=== PATIENT | female | born 1960 | race Caucasian/White ===

== ENCOUNTER → 2016-09-20 | Outpatient (CLI) | payer BC | LOC: MW.CHRC 10:52 | PROVIDERS: ATTEND Family Medicine | DX: E23.6 Other disorders of pituitary gland (principal) | CPT/HCPCS: 36415; 84439; 84443 ==

== ENCOUNTER → 2016-10-10 | Outpatient (CLI) | payer BC ==
--- NOTE | 2016-10-10 14:15 | CR ---
EXAMINATION: Two-view chest (PA and Lateral views). HISTORY: Cough. Comparison: 08/17/2015. FINDINGS: The trachea is midline. The cardiomediastinal silhouette is within normal limits. There is stable bl unting of the left costophrenic angle. No focal consolidation, pleural effusion, or pneumothorax. Osseous structures appear unremarkable. IMPRESSION: No acute cardiopulmonary process.
== END ==
LOC: MW.CHRC 13:40
PROVIDERS: ATTEND Family Medicine
DX: R50.9 Fever, unspecified (principal); R05 Cough
CPT/HCPCS: 36415; 71020; 71020-26; 85025; 87804

== ENCOUNTER 2017-05-21 15:55 | Observation (INO) | payer BC ==
[2017-05-21] MEDS ORDERED: Sodium Chloride 0.9% 10 ML Syringe FLUSH PRN (16:03)
[2017-05-21] MEDS ORDERED: Aspirin 81 MG Tab.Chew PO ONE (16:03)
[2017-05-21] MEDS ORDERED: Sodium Chloride 0.9% 2.5 ML Syringe FLUSH PRN (16:03)
[2017-05-21] MEDS ORDERED: Nitroglycerin 2% Oint 1 GM UD Packet TOP ONE (16:03)
--- NOTE | 2017-05-21 16:06 | EDM.PDOC ---
ED HPI GENERAL MEDICAL PROBLEM - General Chief Complaint: Chest Pain Stated Complaint: CHEST PAIN Time Seen by Provider: 05/21/17 16:00 - History of Present Illness INITIAL COMMENTS - FREE TEXT/NARRATIVE: HISTORY AND PHYSICAL: History of present illness: Patient 57-year-old female presents with a concern of chest pain she had an episode this morning last proximate 10 minutes with associated nausea and shortness of breath and diaphoresis. Patient equivocates regarding some mild soreness now over upper back. Patient is a smoker she states 10 years prior she had a thallium stress that was negative Review of systems: As per history of present illness and below otherwise all systems reviewed and negative. Past medical history: As per history of present illness and as reviewed below otherwise noncontributory. Surgical history: As per history of present illness and as reviewed below otherwise noncontributory. Social history: No reported history of drug or alcohol abuse. Family history: As per history of present illness and as reviewed below otherwise noncontributory. Physical exam: HEENT: Atraumatic, normocephalic, pupils reactive, negative for conjunctival pallor or scleral icterus, mucous membranes moist, throat clear, neck supple, nontender, trachea midline. Lungs: Clear to auscultation, breath sounds equal bilaterally, chest nontender. Heart: S1S2, regular, negative for clicks, rubs, or JVD. Abdomen: Soft, nondistended, nontender. Negative for masses or hepatosplenomegaly. Negative for costovertebral tenderness. Pelvis: Stable nontender. Genitourinary: Deferred. Rectal: Deferred. Extremities: Atraumatic, negative for cords or calf pain. Neurovascular unremarkable. Neuro: Awake, alert, oriented. Cranial nerves II through XII unremarkable. Cerebellum unremarkable. Motor and sensory unremarkable throughout. Exam nonfocal. Diagnostics: CBC CMP troponin PT/INR chest x-ray EKG Therapeutics: IV O2 monitor aspirin 324 mg by mouth Nitropaste 1 inch to chest wall Impression: #1 chest pain Definitive disposition and diagnosis as appropriate pending reevaluation and review of above. Chest Pain Score (Numeric/FACES): 0 - Related Data Allergies Allergy/AdvReac Type Severity Reaction Status Date / Time No Known Allergies Allergy Verified 05/05/16 17:16 Home Meds: Home Meds Aspirin 81 mg PO DAILY 05/05/16 [History] Levothyroxine 125 mcg PO ACBREAKFAST 05/21/17 [History] Losartan [Cozaar] 25 mg PO DAILY 05/21/17 [History] atorvaSTATin [Lipitor] 20 mg PO BEDTIME 05/21/17 [History] metFORMIN [Glucophage XR] 1,000 mg PO BIDMEALS 05/21/17 [History] Past Medical History HEENT History: Reports: None Cardiovascular History: Reports: Hypertension Respiratory History: Reports: Bronchitis, Recurrent Gastrointestinal History: Reports: None Genitourinary History: Reports: None 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: Musculoskeletal History: Reports: Arthritis, Fracture Neurological History: Reports: None Psychiatric History: Reports: None Endocrine/Metabolic History: Reports: None Hematologic History: Reports: None Immunologic History: Reports: None Oncologic (Cancer) History: Reports: None Dermatologic History: Reports: Psoriasis - Infectious Disease History Infectious Disease History: Reports: Chicken Pox, Measles, Mumps - Past Surgical History GI Surgical History: Reports: Colonoscopy Social & Family History - Family History Family Medical History: Noncontributory - Tobacco Use Smoking Status *Q: Current Every Day Smoker Years of Tobacco use: 20 Packs/Tins Daily: 1 - Caffeine Use Caffeine Use: Reports: Coffee - Recreational Drug Use Recreational Drug Use: No ED ROS GENERAL - Review of Systems Review Of Systems: ROS reveals no pertinent complaints other than HPI. ED EXAM, GENERAL - Physical Exam Exam: See Below (See dictated) Course - Vital Signs Last Recorded V/S: Last Vital Signs Temp 36.7 C 05/21/17 16:06 Pulse 67 05/21/17 16:06 Resp 18 05/21/17 16:06 BP 178/79 H 05/21/17 16:06 Pulse Ox 95 05/21/17 16:06 - Orders/Labs/Meds Orders: Active Orders 24 hr Category Date Time Status Cardiac Monitoring [RC] . DIRECTED Care 05/21/17 16:03 Active EKG Documentation Completion [RC] STAT Care 05/21/17 16:03 Active Oxygen Therapy, ED [RC] ASDIRECTED Care 05/21/17 16:03 Active Pulse Oximetry [RC] ASDIRECTED Care 05/21/17 16:03 Active Chest 1V Frontal [CR] Stat Exams 05/21/17 16:03 Taken Sodium Chloride 0.9% [Normal Saline] 1,000 ml Med 05/21/17 16:15 Active IV STAT Sodium Chloride 0.9% [Saline Flush] Med 05/21/17 16:03 Active 10 ml FLUSH ASDIRECTED PRN Sodium Chloride 0.9% [Saline Flush] Med 05/21/17 16:03 Active 2.5 ml FLUSH ASDIRECTED PRN Saline Lock Insert [OM.PC] Stat Oth 05/21/17 16:03 Ordered Medication Orders Sodium Chloride (Normal Saline) 1,000 mls @ 125 mls/hr IV STAT JOSEE Last Admin: 05/21/17 16:44 Dose: 125 mls/hr Sodium Chloride (Saline Flush) 10 ml FLUSH ASDIRECTED PRN PRN Reason: Keep Vein Open Last Admin: 05/21/17 16:46 Dose: 10 ml Sodium Chloride (Saline Flush) 2.5 ml FLUSH ASDIRECTED PRN PRN Reason: Keep Vein Open Last Admin: 05/21/17 16:46 Dose: 2.5 ml Labs: Laboratory Tests 05/21/17 05/21/17 05/21/17 Range/Units 17:03 17:03 17:03 WBC 6.72 (4.0-11.0) K/uL RBC 4.55 (4.30-5.90) M/uL Hgb 14.0 (12.0-16.0) g/dL Hct 42.5 (36.0-46.0) % MCV 93.4 (80.0-98.0) fL MCH 30.8 (27.0-32.0) pg MCHC 32.9 (31.0-37.0) g/dL RDW Std Deviation 47.3 (28.0-62.0) fl RDW Coeff of Christen 14 (11.0-15.0) % Plt Count 281 (150-400) K/uL MPV 9.40 (7.40-12.00) fL Neut % (Auto) 59.9 (48.0-80.0) % Lymph % (Auto) 30.8 (16.0-40.0) % [place] % (Auto) 6.5 (0.0-15.0) % Eos % (Auto) 2.4 (0.0-7.0) % Baso % (Auto) 0.4 (0.0-1.5) % Neut # (Auto) 4.0 (1.4-5.7) K/uL Lymph # (Auto) 2.1 (0.6-2.4) K/uL [place] # (Auto) 0.4 (0.0-0.8) K/uL Eos # (Auto) 0.2 (0.0-0.7) K/uL Baso # (Auto) 0.0 (0.0-0.1) K/uL Nucleated RBC % 0.0 /100WBC Nucleated RBCs # 0 K/uL INR 0.95 (0.86-1.11) Sodium 139 (136-146) mmol/L Potassium 3.6 (3.5-5.1) mmol/L Chloride 107 (98-110) mmol/L Carbon Dioxide 22 (21-31) mmol/L BUN 9 (6.0-23.0) mg/dL Creatinine 0.7 (0.6-1.5) mg/dL Est Cr Clr Drug Dosing 90.53 mL/min Estimated GFR (MDRD) > 60.0 ml/min Glucose 98 (60-110) mg/dL Calcium 9.1 (8.8-10.8) mg/dL Total Bilirubin 0.6 (0.1-1.5) mg/dL AST 14 (5-40) IU/L ALT 14 (8-54) IU/L Alkaline Phosphatase 74 (40-150) Troponin I < 0.10 (0.0-0.29) NG/ML B-Natriuretic Peptide (<100) PG/ML Total Protein 6.9 (6.0-8.0) g/dL Albumin 3.9 (3.5-5.0) g/dL Globulin 3.0 (2.0-3.5) g/dL Albumin/Globulin Ratio 1.3 (1.3-2.8) 05/21/17 Range/Units 17:03 WBC (4.0-11.0) K/uL RBC (4.30-5.90) M/uL Hgb (12.0-16.0) g/dL Hct (36.0-46.0) % MCV (80.0-98.0) fL MCH (27.0-32.0) pg MCHC (31.0-37.0) g/dL RDW Std Deviation (28.0-62.0) fl RDW Coeff of Christen (11.0-15.0) % Plt Count (150-400) K/uL MPV (7.40-12.00) fL Neut % (Auto) (48.0-80.0) % Lymph % (Auto) (16.0-40.0) % [place] % (Auto) (0.0-15.0) % Eos % (Auto) (0.0-7.0) % Baso % (Auto) (0.0-1.5) % Neut # (Auto) (1.4-5.7) K/uL Lymph # (Auto) (0.6-2.4) K/uL [place] # (Auto) (0.0-0.8) K/uL Eos # (Auto) (0.0-0.7) K/uL Baso # (Auto) (0.0-0.1) K/uL Nucleated RBC % /100WBC Nucleated RBCs # K/uL INR (0.86-1.11) Sodium (136-146) mmol/L Potassium (3.5-5.1) mmol/L Chloride (98-110) mmol/L Carbon Dioxide (21-31) mmol/L BUN (6.0-23.0) mg/dL Creatinine (0.6-1.5) mg/dL Est Cr Clr Drug Dosing mL/min Estimated GFR (MDRD) ml/min Glucose (60-110) mg/dL Calcium (8.8-10.8) mg/dL Total Bilirubin (0.1-1.5) mg/dL AST (5-40) IU/L ALT (8-54) IU/L Alkaline Phosphatase (40-150) Troponin I (0.0-0.29) NG/ML B-Natriuretic Peptide < 15 (<100) PG/ML Total Protein (6.0-8.0) g/dL Albumin (3.5-5.0) g/dL Globulin (2.0-3.5) g/dL Albumin/Globulin Ratio (1.3-2.8) Meds: Medications Generic Name Dose Route Start Last Admin Trade Name Freq PRN Reason Stop Dose Admin Sodium Chloride 1,000 mls @ 125 mls/hr 05/21/17 16:15 05/21/17 16:44 Normal Saline IV 125 mls/hr STAT JOSEE Administration Sodium Chloride 10 ml 05/21/17 16:03 05/21/17 16:46 Saline Flush FLUSH 10 ml ASDIRECTED PRN Administration Keep Vein Open Sodium Chloride 2.5 ml 05/21/17 16:03 05/21/17 16:46 Saline Flush FLUSH 2.5 ml ASDIRECTED PRN Administration Keep Vein Open Discontinued Medications Generic Name Dose Route Start Last Admin Trade Name Isabel PRN Reason Stop Dose Admin Aspirin 324 mg 05/21/17 16:03 05/21/17 16:18 Aspirin PO 05/21/17 16:04 324 mg ONETIME ONE Administration Nitroglycerin 1 gm 05/21/17 16:03 05/21/17 16:17 Nitro-Bid 2% TOP 05/21/17 16:04 1 gm ONETIME ONE Administration Departure - Departure Time of Disposition: 18:00 Disposition: Refer to Observation Condition: Good Clinical Impression: Chest pain - Discharge Information Forms: ED Department Discharge - My Orders Last 24 Hours: My Active Orders 05/21/17 16:03 Cardiac Monitoring [RC] . DIRECTED EKG Documentation Completion [RC] STAT Oxygen Therapy, ED [RC] ASDIRECTED Pulse Oximetry [RC] ASDIRECTED Chest 1V Frontal [CR] Stat Sodium Chloride 0.9% [Saline Flush] 10 ml FLUSH ASDIRECTED PRN Sodium Chloride 0.9% [Saline Flush] 2.5 ml FLUSH ASDIRECTED PRN Saline Lock Insert [OM.PC] Stat 05/21/17 16:15 Sodium Chloride 0.9% [Normal Saline] 1,000 ml IV STAT - Assessment/Plan Last 24 Hours: My Active Orders 05/21/17 16:03 Cardiac Monitoring [RC] . DIRECTED EKG Documentation Completion [RC] STAT Oxygen Therapy, ED [RC] ASDIRECTED Pulse Oximetry [RC] ASDIRECTED Chest 1V Frontal [CR] Stat Sodium Chloride 0.9% [Saline Flush] 10 ml FLUSH ASDIRECTED PRN Sodium Chloride 0.9% [Saline Flush] 2.5 ml FLUSH ASDIRECTED PRN Saline Lock Insert [OM.PC] Stat 05/21/17 16:15 Sodium Chloride 0.9% [Normal Saline] 1,000 ml IV STAT
[2017-05-21] MEDS ORDERED: Sodium Chloride 0.9% 1,000 ML IV SCH (16:15)
[2017-05-21 17:41] LABS: CHLORIDE,CL 107 mmol/L (98-110); SODIUM,NA 139 mmol/L (136-146)
[2017-05-21] MEDS ORDERED: Ondansetron 4 MG/2 ML SDV IVPUSH PRN (20:30)
--- NOTE | 2017-05-21 20:37 | PCM.HP ---
H&P History of Present Illness - General Admit Problem/Dx: Admission Diagnosis/Problem Admission Diagnosis/Problem Chest pain - History of Present Illness Initial Comments - Free Text/Narative: 57 yo female with pmh of HTN, Hyperlipidemia, hypothyroidism who presents to the ED with complaints of chest pain. She reports chest pain starting a week ago. The pain is located mid scapula adn radiates to the upper left chest. The episodes last a few minutes and the ones today were associated with nausea. She denies any shortness of breath, cough or fevers. Initial EKG and cardiac enzymes were negative for signs of ischemia. Chest Pain Score (Numeric/FACES): 0 - Related Data Allergies/Adverse Reactions: Allergies Allergy/AdvReac Type Severity Reaction Status Date / Time No Known Allergies Allergy Verified 05/05/16 17:16 Home Medications: Home Meds Aspirin 81 mg PO DAILY 05/05/16 [History] Levothyroxine 125 mcg PO ACBREAKFAST 05/21/17 [History] Losartan [Cozaar] 25 mg PO DAILY 05/21/17 [History] atorvaSTATin [Lipitor] 20 mg PO BEDTIME 05/21/17 [History] metFORMIN [Glucophage XR] 1,000 mg PO BIDMEALS 05/21/17 [History] Past Medical History HEENT History: Reports: None Cardiovascular History: Reports: Hypertension Respiratory History: Reports: Bronchitis, Recurrent Gastrointestinal History: Reports: None Genitourinary History: Reports: None 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: Musculoskeletal History: Reports: Arthritis, Fracture Neurological History: Reports: None Psychiatric History: Reports: None Endocrine/Metabolic History: Reports: None Hematologic History: Reports: None Immunologic History: Reports: None Oncologic (Cancer) History: Reports: None Dermatologic History: Reports: Psoriasis - Infectious Disease History Infectious Disease History: Reports: Chicken Pox, Measles, Mumps - Past Surgical History GI Surgical History: Reports: Colonoscopy Social & Family History - Family History Family Medical History: Noncontributory - Tobacco Use Smoking Status *Q: Current Every Day Smoker Years of Tobacco use: 20 Packs/Tins Daily: 1 - Caffeine Use Caffeine Use: Reports: Coffee - Recreational Drug Use Recreational Drug Use: No H&P Review of Systems - Review of Systems: Review Of Systems: ROS reveals no pertinent complaints other than HPI. Exam - Exam Exam: See Below - Vital Signs Vital Signs: Last Vital Signs Temp 36.2 C 05/21/17 19:12 Pulse 59 L 05/21/17 19:12 Resp 18 05/21/17 19:12 BP 154/71 H 05/21/17 19:12 Pulse Ox 96 05/21/17 19:12 Weight: 111.13 kg - Exam General: Alert, Oriented, 4 HEENT: Mucosa Moist & Chance Lungs: Clear to Auscultation, Normal Respiratory Effort Cardiovascular: Regular Rate, Regular Rhythm, Normal S1, Normal S2. No: Systolic Murmur, Diastolic Murmur GI/Abdominal Exam: Normal Bowel Sounds, Soft, Non-Tender Extremities: Normal Inspection, Non-Tender Skin: Warm, Dry, Intact - Patient Data Result Diagrams: 05/21/17 17:03 05/21/17 17:03 *Q Meaningful Use (ADM) - VTE *Q VTE Criteria *Q: - Stroke *Q Stroke Criteria *Q: - AMI *Q AMI Criteria *Q: Problem List Initiated/Reviewed/Updated: Yes Orders Last 24hrs: Active Orders 24 hr Category Date Time Status Antiembolic Devices [RC] PER UNIT ROUTINE Care 05/21/17 20:31 Ordered Blood Glucose Check, Bedside [RC] TIDMEALS Care 05/21/17 20:30 Ordered Oxygen Therapy [RC] PRN Care 05/21/17 20:30 Ordered Up ad Katherine [RC] ASDIRECTED Care 05/21/17 20:30 Ordered VTE/DVT Education [RC] PER UNIT ROUTINE Care 05/21/17 20:30 Ordered Vital Signs [RC] Q4H Care 05/21/17 20:30 Ordered [place] [employer] Diet [DIET] Diet 05/21/17 Breakfast Ordered TROPONIN I [CHEM] Q6H Lab 05/21/17 23:00 Ordered TROPONIN I [CHEM] Q6H Lab 05/22/17 05:00 Ordered Aspirin Med 05/22/17 09:00 Ordered 81 mg PO DAILY Insulin Aspart [NovoLOG] Med 05/21/17 20:30 Ordered See Protocol SUBCUT TIDAC Levothyroxine Med 05/22/17 07:30 Ordered 125 mcg PO ACBREAKFAST Losartan Med 05/22/17 09:00 Ordered 25 mg PO DAILY Ondansetron [Zofran] Med 05/21/17 20:30 Ordered 4 mg IVPUSH Q4H PRN atorvaSTATin [Lipitor] Med 05/21/17 21:00 Ordered 20 mg PO BEDTIME Sequential Compression Device [OM.PC] Per Unit Routine Oth 05/21/17 20:30 Ordered Medication Orders Aspirin (Aspirin) 81 mg PO DAILY JOSEE Atorvastatin Calcium (Lipitor) 20 mg PO BEDTIME JOSEE Sodium Chloride (Normal Saline) 1,000 mls @ 125 mls/hr IV STAT JOSEE Last Admin: 05/21/17 16:44 Dose: 125 mls/hr Insulin Aspart (Novolog) 0 unit SUBCUT TIDAC JOSEE PRN Reason: Protocol Levothyroxine Sodium (Levothyroxine) 125 mcg PO ACBREAKFAST JOSEE Non-Formulary Medication (Losartan) 25 mg PO DAILY JOSEE Ondansetron HCl (Zofran) 4 mg IVPUSH Q4H PRN PRN Reason: Nausea Sodium Chloride (Saline Flush) 10 ml FLUSH ASDIRECTED PRN PRN Reason: Keep Vein Open Last Admin: 05/21/17 16:46 Dose: 10 ml Sodium Chloride (Saline Flush) 2.5 ml FLUSH ASDIRECTED PRN PRN Reason: Keep Vein Open Last Admin: 05/21/17 16:46 Dose: 2.5 ml Assessment/Plan Comment:: 57 yo female who presents with chest pain. Will place on acute coronary syndrome rule out protocol. Will trend cardiac enzymes and monitor on telemetry.
[2017-05-21] MEDS ORDERED: atorvaSTATin 20 MG Tab PO SCH (21:00)
[2017-05-21] MEDS: Insulin Aspart 100 Units/ML 3 ML Pen SUBCUT SCH (21:12)
[2017-05-22] MEDS: Insulin Aspart 100 Units/ML 3 ML Pen SUBCUT SCH (06:41)
[2017-05-22] MEDS ORDERED: Levothyroxine 125 MCG Tab PO SCH (07:30)
[2017-05-22 08:20] VITALS: BP 124/61
--- NOTE | 2017-05-22 08:30 | PCM.DCSUM1 ---
Discharge Summary - Hospital Course Brief History: 57 yo female with pmh of HTN, Hyperlipidemia, hypothyroidism who presents to the ED with complaints of chest pain. She reported chest pain starting a week ago. The pain is located mid scapula and radiates to the upper left chest and to neck. The episodes last a few minutes and the ones today were associated with nausea. She denies any shortness of breath, cough or fevers. Initial EKG and cardiac enzymes were negative for signs of ischemia. - Discharge Data Discharge Date: 05/22/17 Discharge Disposition: Home, Self-Care 01 Condition: Good - Discharge Diagnosis/Problem(s) (1) Chest pain SNOMED Code(s): 87422052 ICD Code: R07.9 - CHEST PAIN, UNSPECIFIED Status: Acute (2) Obesity (BMI 30-39.9) SNOMED Code(s): 108929085 ICD Code: E66.9 - OBESITY, UNSPECIFIED Status: Chronic (3) HTN (hypertension) SNOMED Code(s): 94628924 ICD Code: I10 - ESSENTIAL (PRIMARY) HYPERTENSION Status: Chronic Qualifiers: Hypertension type: essential hypertension Qualified Code(s): I10 - Essential (primary) hypertension (4) DM type 2 (diabetes mellitus, type 2) SNOMED Code(s): 80427132 ICD Code: E11.9 - TYPE 2 DIABETES MELLITUS WITHOUT COMPLICATIONS Status: Chronic Qualifiers: Diabetes mellitus complication status: without complication Diabetes mellitus terminal press operator insulin use: without terminal press operator use Qualified Code(s): E11.9 - Type 2 diabetes mellitus without complications (5) Hyperlipidemia SNOMED Code(s): 34705370 ICD Code: E78.5 - HYPERLIPIDEMIA, UNSPECIFIED Status: Chronic Qualifiers: Hyperlipidemia type: unspecified Qualified Code(s): E78.5 - Hyperlipidemia , unspecified - Patient Instructions Diet: Heart Healthy Diet, Diabetic Diet Activity: As Tolerated Showering/Bathing: May Shower Notify Provider of: Fever, Increased Pain, Swelling and Redness, Drainage, Nausea and/or Vomiting Other/Special Instructions: smoking cessation highly encouraged. - Discharge Plan Home Medications: Home Meds Aspirin 81 mg PO DAILY 05/05/16 [History] Levothyroxine 125 mcg PO ACBREAKFAST 05/21/17 [History] Losartan [Cozaar] 25 mg PO DAILY 05/21/17 [History] atorvaSTATin [Lipitor] 20 mg PO BEDTIME 10/31/17 [History] metFORMIN [Glucophage XR] 1,000 mg PO BIDMEALS 05/21/17 [History] Patient Handouts: Nonspecific Chest Pain, [id number] Referrals: Margie Layton MD [Physician] - 05/29/17 3:00 pm (please around Lexiscan) Geovanny Rey [Resident] - 05/31/17 3:30 pm - Discharge Summary/Plan Comment DC Time >30 min.: No Discharge Summary/Plan Comment: Discharge Diagnoses: Chest pain- ACS ruled out HTN DM type 2 Obesity Smoker Dyslipidemia Chrissy was admitted and troponins trended. ACS ruled out. Telemetry continued to show NO ST segment changes. She had no further chest pain. She will be discharged today. BP better this morning, no changes to HTN medication today. Will arrange for outpatient Lexiscan, patient reports she would be unable to perform exercise stress test due to hx of smoker and weight. She was highly encouraged to stop smoking, she verbalized she was not ready for that yet, but has cut down to 6 cigarettes daily from 2 packs per day. She will be set up to see PCP, Dr Rey as well and for stress test. - General Info Date of Service: 05/22/17 Admission Dx/Problem (Free Text: Admission Diagnosis/Problem Admission Diagnosis/Problem Chest pain Functional Status: Reports: Pain Controlled, Tolerating Diet, Ambulating, Urinating - Review of Systems General: Reports: No Symptoms. Denies: Fever, Weakness HEENT: Reports: No Symptoms. Denies: Headaches, Sinus Congestion, Visual Changes Pulmonary: Reports: No Symptoms. Denies: Shortness of Breath Cardiovascular: Denies: Chest Pain, Edema Gastrointestinal: Reports: No Symptoms. Denies: Abdominal Pain, Nausea, Vomiting Neurological: Reports: No Symptoms Psychiatric: Reports: No Symptoms - Patient Data Vitals - Most Recent: Last Vital Signs Temp 97.2 F 05/22/17 08:00 Pulse 63 05/22/17 08:00 Resp 20 05/22/17 08:00 BP 124/61 05/22/17 08:19 Pulse Ox 90 L 05/22/17 08:00 Weight - Most Recent: 111.13 kg I&O - Last 24 hours: Intake & Output 05/21/17 05/22/17 05/22/17 22:59 06:59 14:59 Intake Total 1700 Output Total 850 Balance 850 Lab Results - Last 24 hrs: Laboratory Results - last 24 hr 05/21/17 05/22/17 Range/Units 23:07 04:30 Troponin I < 0.10 < 0.10 (0.0-0.29) NG/ML Med Orders - Current: Current Medications Aspirin (Aspirin) 81 mg PO DAILY [facility] Last Admin: 05/22/17 08:19 Dose: 81 mg Atorvastatin Calcium (Lipitor) 20 mg PO BEDTIME [facility] Last Admin: 05/21/17 21:13 Dose: 20 mg Sodium Chloride (Normal Saline) 1,000 mls @ 125 mls/hr IV STAT [facility] Last Infusion: 05/22/17 01:00 Dose: Infused Insulin Aspart (Novolog) 0 unit SUBCUT TIDAC [facility] PRN Reason: Protocol Last Admin: 05/22/17 06:41 Dose: Not Given Levothyroxine Sodium (Levothyroxine) 125 mcg PO ACBREAKFAST [facility] Last Admin: 05/22/17 06:41 Dose: 125 mcg Losartan Potassium (Cozaar) 25 mg PO DAILY [facility] Last Admin: 05/22/17 08:19 Dose: 25 mg Ondansetron HCl (Zofran) 4 mg IVPUSH Q4H PRN PRN Reason: Nausea Sodium Chloride (Saline Flush) 10 ml FLUSH ASDIRECTED PRN PRN Reason: Keep Vein Open Last Admin: 05/21/17 16:46 Dose: 10 ml Sodium Chloride (Saline Flush) 2.5 ml FLUSH ASDIRECTED PRN PRN Reason: Keep Vein Open Last Admin: 05/21/17 16:46 Dose: 2.5 ml Discontinued Medications Aspirin (Aspirin) 324 mg PO ONETIME ONE Stop: 05/21/17 16:04 Last Admin: 05/21/17 16:18 Dose: 324 mg Nitroglycerin (Nitro-Bid 2%) 1 gm TOP ONETIME ONE Stop: 05/21/17 16:04 Last Admin: 05/21/17 16:17 Dose: 1 gm - Exam General: Reports: Alert, Oriented, Cooperative, No Acute Distress Lungs: Reports: Clear to Auscultation, Normal Respiratory Effort Cardiovascular: Reports: Regular Rate, Regular Rhythm GI/Abdominal Exam: Normal Bowel Sounds, Soft, Non-Tender, No Organomegaly, No Distention, No Abnormal Bruit, No Mass, Pelvis Stable Neurological: Reports: No New Focal Deficit Psy/Mental Status: Reports: Alert, Normal Affect, Normal Mood *Q Meaningful Use (DIS) - VTE *Q VTE Criteria *Q: - Stroke *Q Stroke Criteria *Q: - AMI *Q AMI Criteria *Q:
[2017-05-22] MEDS ORDERED: Losartan 50 MG Tab PO SCH (09:00)
[2017-05-22] MEDS ORDERED: Aspirin 81 MG Tab.Chew PO SCH (09:00)
--- NOTE | 2017-05-22 10:44 | CR ---
EXAM DATE: 05/21/17 PATIENT'S AGE: 57 Patient: JAKE RING Facility: [place], [place] Site . Site : [id number] Study: XRay Chest [id number]/31/2017 5:08:43 PM Ordering Physician: Sherrie Gross Final Report: Indication: Chest pain. SOB Technique: Chest 1 view Comparison: 10/10/16. Findings/Impression: Cardiovascular and mediastinum: Upper limits of normal cardiac size. Lungs and pleural space: Lungs are clear. No sign of infiltrate or mass. No sign of pleural effusion. No pneumothorax. Bones and soft tissues: No significant change. Dictated by Radhames Willingham MD @ 05/21/2017 5:46:49 PM Dictated by: Radhames Willingham MD @ 05/21/2017 17:47:03 (Electronic Signature) Report Signed by Proxy. [facility] CENTERMelisa
== END 2017-05-22 10:56 | disposition home or self-care (01) ==
LOC: MW.ED 15:55 → MW.MS 18:01
PROVIDERS: ADMIT Internal Medicine; ATTEND Internal Medicine
DX: R07.9 Chest pain, unspecified (principal); E66.9 Obesity, unspecified; I10 Essential (primary) hypertension; E11.9 Type 2 diabetes mellitus without complications; E03.9 Hypothyroidism, unspecified; E78.5 Hyperlipidemia, unspecified; F17.210 Nicotine dependence, cigarettes, uncomplicated; M19.90 Unspecified osteoarthritis, unspecified site; Z79.82 Long term (current) use of aspirin; Z79.84 Long term (current) use of oral hypoglycemic drugs; Z79.899 Other long term (current) drug therapy; Z98.890 Other specified postprocedural states
CPT/HCPCS: 36415; 71010; 80053; 82962; 83880; 84484; 85025; 85610; 93005; 96360; 96361; 99285; A9270; G0378; J7040; 99283

== ENCOUNTER 2019-01-01 18:12 | Emergency (ER) | payer BC ==
--- NOTE | 2019-01-01 18:17 | EDM.PDOC ---
ED HPI GENERAL MEDICAL PROBLEM - General Chief Complaint: Lower Extremity Injury/Pain Stated Complaint: AMB Time Seen by Provider: 01/01/19 18:13 Source of Information: Reports: Patient History Limitations: Reports: No Limitations - History of Present Illness INITIAL COMMENTS - FREE TEXT/NARRATIVE: History of present illness: []Patient slipped on dog food on the floor and did the splits hurting the inside of both knees and left hip. She arrived by ambulance with no other complaints awake and alert. Patient did not hit her head denies any neck, chest or abdominal pain. Patient arrived with stable vital signs and glucose in the 130s. Review of systems: As per history of present illness and below otherwise all systems reviewed and negative. Past medical history: As per history of present illness and as reviewed below otherwise noncontributory. Surgical history: As per history of present illness and as reviewed below otherwise noncontributory. Social history: No reported history of drug or alcohol abuse. Family history: As per history of present illness and as reviewed below otherwise noncontributory. Physical exam: General: Well developed, well nourished in NAD HEENT: Atraumatic, normocephalic, pupils reactive, negative for conjunctival pallor or scleral icterus, mucous membranes moist, throat clear, neck supple, nontender, trachea midline. Lungs: Clear to auscultation, breath sounds equal bilaterally, chest nontender. Heart: S1S2, regular, negative for clicks, rubs, or JVD. Abdomen: NABS, Soft, nondistended, nontender. Negative for masses or hepatosplenomegaly. Negative for costovertebral tenderness. No lumbar vertebral tenderness Pelvis: Stable and left hip Genitourinary: Deferred. Rectal: Deferred. Extremities: Atraumatic, negative for cords or calf pain. Neurovascular unremarkable. Neuro: Awake, alert, oriented. Cranial nerves II through XII unremarkable. Cerebellum unremarkable. Motor and sensory unremarkable throughout. Exam nonfocal. Skin:warm and dry Diagnostics: X-ray left hip and pelvis, bilateral knee x-rays Therapeutics: Declined pain meds ED Course: Stable Impression: Fall with lower extremity strain left hip pain Prescriptions: Tramadol, Flexeril Plan: Take meds as directed, follow up with your primary care physician, return to ER if symptoms worsen or change. Definitive disposition and diagnosis as appropriate pending reevaluation and review of above. low back Pain Score (Numeric/FACES): 3 - Related Data Allergies Allergy/AdvReac Type Severity Reaction Status Date / Time Influenza Virus Vaccines Allergy Other Verified 05/10/18 13:06 Home Meds: Home Meds Aspirin 81 mg PO DAILY 05/05/16 [History] Levothyroxine 125 mcg PO ACBREAKFAST 05/21/17 [History] Losartan [Cozaar] 25 mg PO DAILY 05/21/17 [History] atorvaSTATin [Lipitor] 20 mg PO BEDTIME 05/21/17 [History] metFORMIN [Glucophage XR] 1,000 mg PO BIDMEALS 05/21/17 [History] Cyclobenzaprine [Flexeril] 10 mg PO BID PRN #12 tab 01/01/19 [Rx] traMADol HCl [Tramadol HCl] 50 mg PO Q6H PRN #16 tablet 01/01/19 [Rx] Past Medical History HEENT History: Reports: None Cardiovascular History: Reports: Hypertension Respiratory History: Reports: Bronchitis, Recurrent Gastrointestinal History: Reports: None Genitourinary History: Reports: None 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: Musculoskeletal History: Reports: Arthritis, Fracture Neurological History: Reports: None Psychiatric History: Reports: None Endocrine/Metabolic History: Reports: None Hematologic History: Reports: None Immunologic History: Reports: None Oncologic (Cancer) History: Reports: None Dermatologic History: Reports: Psoriasis - Infectious Disease History Infectious Disease History: Reports: Chicken Pox, Mumps - Past Surgical History Head Surgeries/Procedures: Reports: None HEENT Surgical History: Reports: None Cardiovascular Surgical History: Reports: None Respiratory Surgical History: Reports: None GI Surgical History: Reports: Colonoscopy Female Surgical History: Reports: None Endocrine Surgical History: Reports: None Neurological Surgical History: Reports: None Musculoskeletal Surgical History: Reports: None Oncologic Surgical History: Reports: None Dermatological Surgical History: Reports: None Social & Family History - Family History Family Medical History: Noncontributory - Caffeine Use Caffeine Use: Reports: Coffee, Soda Review of Systems - Review of Systems Review Of Systems: ROS reveals no pertinent complaints other than HPI. ED EXAM, GENERAL - Physical Exam Exam: See Below (See history of present illness) Course - Vital Signs Last Recorded V/S: Last Vital Signs Temp 98.1 F 01/01/19 18:15 Pulse 77 01/01/19 18:15 Resp 18 01/01/19 18:15 BP 171/84 H 01/01/19 18:15 Pulse Ox 95 01/01/19 18:15 - Orders/Labs/Meds Meds: Medications Discontinued Medications Generic Name Dose Route Start Last Admin Trade Name Freq PRN Reason Stop Dose Admin Cyclobenzaprine HCl 10 mg 01/01/19 19:56 01/01/19 20:03 Flexeril PO 01/01/19 19:57 10 mg ONETIME ONE Administration Tramadol HCl 50 mg 01/01/19 19:55 01/01/19 20:03 Ultram PO 01/01/19 19:56 50 mg ONETIME ONE Administration Departure - Departure Time of Disposition: 19:58 Disposition: Home, Self-Care 01 Condition: Good Clinical Impression: Fall Qualifiers: Encounter type: initial encounter Qualified Code(s): W19.XXXA - Unspecified fall, initial encounter Strain of left hip Qualifiers: Encounter type: initial encounter Qualified Code(s): S76.012A - Strain of muscle, fascia and tendon of left hip, initial encounter Bilateral knee pain Qualifiers: Chronicity: acute Qualified Code(s): M25.561 - Pain in right knee; M25.562 - Pain in left knee - Discharge Information *PRESCRIPTION DRUG MONITORING PROGRAM REVIEWED*: No *COPY OF PRESCRIPTION DRUG MONITORING REPORT IN PATIENT JEAN: No Prescriptions: Cyclobenzaprine [Flexeril] 10 mg PO BID PRN #12 tab PRN Reason: Pain traMADol HCl [Tramadol HCl] 50 mg PO Q6H PRN #16 tablet PRN Reason: Pain Instructions: Muscle Strain, [id number] Referrals: PCP,Unknown [Primary Care Provider] - Forms: ED Department Discharge Additional Instructions: The following information is given to patients seen in the emergency department who are being discharged to home. This information is to outline your options for follow-up care. We provide all patients seen in our emergency department with a follow-up referral. The need for follow-up, as well as the timing and circumstances, are variable depending upon the specifics of your emergency department visit. If you don't have a primary care physician on staff, we will provide you with a referral. We always advise you to contact your personal physician following an emergency department visit to inform them of the circumstance of the visit and for follow-up with them and/or the need for any referrals to a consulting specialist. The emergency department will also refer you to a specialist when appropriate. This referral assures that you have the opportunity for follow-up care with a specialist. All of these measure are taken in an effort to provide you with optimal care, which includes your follow-up. Under all circumstances we always encourage you to contact your private physician who remains a resource for coordinating your care. When calling for follow-up care, please make the office aware that this follow-up is from your recent emergency room visit. If for any reason you are refused follow-up, please contact the [facility] Emergency Department at and asked to speak to the emergency department charge nurse. Take meds as directed, follow up with your primary care physician, return to ER if symptoms worsen or change. [facility] [address] [place] [id number]
[2019-01-01 18:21] VITALS: BP 171/84
[2019-01-01] MEDS ORDERED: traMADol 50 MG Tab PO ONE (19:55)
[2019-01-01] MEDS ORDERED: Cyclobenzaprine 10 MG Tab PO ONE (19:56)
--- NOTE | 2019-01-01 20:29 | CR ---
INDICATION: trauma fall, patient did "splits" TECHNIQUE: Left knee 2 views. COMPARISON: None. FINDINGS: Bones: Alignment is normal. No fractures or bone lesions. Joint spaces: Unremarkable. Soft tissues: Unremarkable. IMPRESSION: Unremarkable left knee. Dictated by: Jaswinder Bynum MD @ 01/01/2019 20:27:24 (Electronically Signed)
--- NOTE | 2019-01-01 20:29 | CR ---
INDICATION: trauma fall, patient did "splits" TECHNIQUE: Right knee 2 views. COMPARISON: None. FINDINGS: Bones: Alignment is normal. No fractures or bone lesions. Joint spaces: Unremarkable. Soft tissues: Unremarkable. IMPRESSION: Unremarkable right knee. Dictated by: Jaswinder Bynum MD @ 01/01/2019 20:26:33 (Electronically Signed)
--- NOTE | 2019-01-01 20:31 | CR ---
INDICATION: Trauma TECHNIQUE: AP pelvis and two views left hip COMPARISON: None FINDINGS: Bones: Alignment is normal. No fractures or bone lesions. Joint spaces: Unremarkable. Soft tissues: Unremarkable. IMPRESSION: Negative. Dictated by Jaswinder Bynum MD @ 01/01/2019 8:29:34 PM Dictated by: Jaswinder Bynum MD @ 01/01/2019 20:29:38 (Electronically Signed)
== END 2019-01-01 20:40 | disposition home or self-care (01) ==
LOC: MW.ED 18:12
DX: S76.012A Strain of muscle, fascia and tendon of left hip, initial encounter (principal); M25.561 Pain in right knee; M25.562 Pain in left knee; I10 Essential (primary) hypertension; Z79.82 Long term (current) use of aspirin; Z79.899 Other long term (current) drug therapy; Z88.7 Allergy status to serum and vaccine; W01.0XXA Fall on same level from slipping, tripping and stumbling without subsequent striking against object, initial encounter
CPT/HCPCS: 73502; 73560; 99284; A9270

== ENCOUNTER 2019-01-02 10:56 | Emergency (ER) | payer BC ==
--- NOTE | 2019-01-02 11:01 | EDM.PDOC ---
ED HPI GENERAL MEDICAL PROBLEM - General Chief Complaint: Lower Extremity Injury/Pain Stated Complaint: KNEE AND HAND HURT Time Seen by Provider: 01/02/19 10:57 Source of Information: Reports: Patient History Limitations: Reports: No Limitations - History of Present Illness INITIAL COMMENTS - FREE TEXT/NARRATIVE: HISTORY AND PHYSICAL: History of present illness: Patient is a 58-year-old female who presents to the emergency room with complaints of bilateral wrist pain and stiffness. She was seen on 01/01/2019 via ambulance after slipping and "doing the splits" resulting in bilateral medial knee pain. She did receive imaging of bilateral knees, pelvis and left hip - which were negative. She received a prescription for tramadol and Flexeril. She reports that she went home and had taken her medications as prescribed. This morning when she woke up she started to develop bilateral wrist pain and stiffness. She states she has increased pain with flexion and extension at the wrist. She denies any new injury, trauma or falls. Denies any numbness, tingling or weakness of the upper or lower extremities. She states that her right medial knee continues to cause her pain but does not want this reevaluated as she believes this is residual from the fall yesterday. Patient denies any fever, chills, headache, change in vision, syncope or near syncope. Denies any chest pain, back pain, shortness of breath or cough. Denies any GI or symptoms. Has not noted any blood in urine or stool. Patient has been eating and drinking appropriately. Review of systems: As per history of present illness and below otherwise all systems reviewed and negative. Past medical history: As per history of present illness and as reviewed below otherwise noncontributory. Surgical history: As per history of present illness and as reviewed below otherwise noncontributory. Social history: See social history for further information Family history: As per history of present illness and as reviewed below otherwise noncontributory. Physical exam: General: Well-developed and well-nourished 58-year-old female. Alert and oriented. Nontoxic appearing and in no acute distress. HEENT: Atraumatic, normocephalic, pupils equal and reactive bilaterally, negative for conjunctival pallor or scleral icterus, mucous membranes moist, TMs normal bilaterally, throat clear, neck supple, nontender, trachea midline. No drooling or trismus noted. No meningeal signs. No hot potato voice noted. Lungs: Clear to auscultation, breath sounds equal bilaterally, chest nontender. Heart: S1S2, regular rate and rhythm without overt murmur Abdomen: Soft, nondistended, nontender. Negative for masses or hepatosplenomegaly. Negative for costovertebral tenderness. Pelvis: Stable nontender. Genitourinary: Deferred. Rectal: Deferred. Skin: Intact, warm, dry. No lesions or rashes noted. Extremities: Atraumatic, moves all extremities per self without deficits, states she does have pain with ambulation to bilateral knees (right greater than left knee). No knee instability noted. Pain with flexion and extension of bilateral wrists (right greater than left). No pinpoint tenderness with palpation of right wrist. Strong radial and pedal pulses bilaterally. Neurovascular unremarkable. Neuro: Awake, alert, oriented. Cranial nerves II through XII unremarkable. Cerebellum unremarkable. Motor and sensory unremarkable throughout. Exam nonfocal. Notes: I did offer her pain medication at this time, she declines. Right wrist xray shows an acute fracture of the triquetrum with adjacent soft tissue swelling. Fiberglass splint was applied with education. Patient states she does have an appointment on 01/13/19 but is concerned that she will not be able to work until she has a release from her primary care provider. Nursing staff was able to get her an appointment with Dr. Rodarte on 01/07/2019 at 10:[address] her in a cockup wrist splint as most of her pain is in the right wrist. Supportive care measures were reviewed and discussed. Voices understanding and is agreeable to plan of care. Denies any further questions or concerns at this time. Diagnostics: Bilateral wrist x-ray Therapeutics: Posterior fiberglass splint Prescription: None Impression: Fall Right wrist fracture Plan: 1. Rest, ice, elevate the extremities and is able. 2. Continue taking the prescribed tramadol and Flexeril as prescribed and needed. You may use Tylenol and/or ibuprofen in addition to these medications. 3. An expedited follow-up appointment was made for you for January 07 at 10:[address] Rodarte at the [facility]. 4. Follow-up with the orthopedic provider as we discussed. Return to the ED as needed and as discussed. Definitive disposition and diagnosis as appropriate pending reevaluation and review of above. Bilateral Wrist Pain Score (Numeric/FACES): 5 - Related Data Allergies Allergy/AdvReac Type Severity Reaction Status Date / Time Influenza Virus Vaccines Allergy Other Verified 01/02/19 11:03 Home Meds: Home Meds Aspirin 81 mg PO DAILY 05/05/16 [History] Levothyroxine 125 mcg PO ACBREAKFAST 05/21/17 [History] Losartan [Cozaar] 25 mg PO DAILY 05/21/17 [History] atorvaSTATin [Lipitor] 20 mg PO BEDTIME 05/21/17 [History] metFORMIN [Glucophage XR] 1,000 mg PO BIDMEALS 05/21/17 [History] Cyclobenzaprine [Flexeril] 10 mg PO BID PRN #12 tab 01/01/19 [Rx] traMADol HCl [Tramadol HCl] 50 mg PO Q6H PRN #16 tablet 01/01/19 [Rx] Past Medical History HEENT History: Reports: None Cardiovascular History: Reports: Hypertension Respiratory History: Reports: Bronchitis, Recurrent Gastrointestinal History: Reports: None Genitourinary History: Reports: 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: Musculoskeletal History: Reports: Arthritis, Fracture Neurological History: Reports: None Psychiatric History: Reports: None Endocrine/Metabolic History: Reports: None Hematologic History: Reports: None Immunologic History: Reports: None Oncologic (Cancer) History: Reports: None Dermatologic History: Reports: Psoriasis - Infectious Disease History Infectious Disease History: Reports: Chicken Pox, Mumps - Past Surgical History Head Surgeries/Procedures: Reports: None HEENT Surgical History: Reports: None Cardiovascular Surgical History: Reports: None Respiratory Surgical History: Reports: None GI Surgical History: Reports: Colonoscopy Female Surgical History: Reports: None Endocrine Surgical History: Reports: None Neurological Surgical History: Reports: None Musculoskeletal Surgical History: Reports: None Oncologic Surgical History: Reports: None Dermatological Surgical History: Reports: None Social & Family History - Family History Family Medical History: Noncontributory - Caffeine Use Caffeine Use: Reports: Coffee, Soda Review of Systems - Review of Systems Review Of Systems: ROS reveals no pertinent complaints other than HPI. ED EXAM, GENERAL - Physical Exam Exam: See Below (See dictation) Course - Vital Signs Last Recorded V/S: Last Vital Signs Temp 97 F 01/02/19 11:04 Pulse 74 01/02/19 11:04 Resp 18 06/14/19 11:04 BP 152/79 H 01/02/19 11:04 Pulse Ox 95 01/02/19 11:04 Departure - Departure Time of Disposition: 12:17 Disposition: Home, Self-Care 01 Clinical Impression: Fall Qualifiers: Encounter type: subsequent encounter Qualified Code(s): W19.XXXD - Unspecified fall, subsequent encounter Right wrist fracture Qualifiers: Encounter type: subsequent encounter Fracture type: closed Fracture healing: with routine healing Qualified Code(s): S62.101D - Fracture of unspecified carpal bone, right wrist, subsequent encounter for fracture with routine healing - Discharge Information Instructions: Wrist Fracture Treated With Immobilization Referrals: Darek Rodarte MD [Resident] - 01/07/19 10:15 am (Please arrive 15 minutes early for your appointment. Please bring photo ID and insurance cards.) PCP,None [Primary Care Provider] - Forms: ED Department Discharge Additional Instructions: The following information is given to patients seen in the emergency department who are being discharged to home. This information is to outline your options for follow-up care. We provide all patients seen in our emergency department with a follow-up referral. The need for follow-up, as well as the timing and circumstances, are variable depending upon the specifics of your emergency department visit. If you don't have a primary care physician on staff, we will provide you with a referral. We always advise you to contact your personal physician following an emergency department visit to inform them of the circumstance of the visit and for follow-up with them and/or the need for any referrals to a consulting specialist. The emergency department will also refer you to a specialist when appropriate. This referral assures that you have the opportunity for follow-up care with a specialist. All of these measure are taken in an effort to provide you with optimal care, which includes your follow-up. Under all circumstances we always encourage you to contact your private physician who remains a resource for coordinating your care. When calling for follow-up care, please make the office aware that this follow-up is from your recent emergency room visit. If for any reason you are refused follow-up, please contact the [facility] Department at and asked to speak to the emergency department charge nurse. [facility] [address] [place] [address] [facility] [address] [place] [id number] 1. Rest, ice, elevate the extremities and is able. 2. Continue taking the prescribed tramadol and Flexeril as prescribed and needed. You may use Tylenol and/or ibuprofen in addition to these medications. 3. An expedited follow-up appointment was made for you for January 07 at 10:[address] Rodarte at the [facility]. 4. Follow-up with the orthopedic provider as we discussed. Return to the ED as needed and as discussed.
--- NOTE | 2019-01-02 12:16 | CR ---
Indication: Injury and pain Technique: Left wrist 3 view Comparison: None Findings: Bones: Alignment is normal. No fractures or bone lesions. Joint spaces: Unremarkable. Soft tissues: Unremarkable. Impression: No sign of acute injury in the left wrist. Dictated by Eric Henderson MD @ Jan 02 2019 12:11PM Signed by Dr. Eric Henderson @ Jan 02 2019 12:14PM
--- NOTE | 2019-01-02 12:18 | CR ---
Indication: Injury and pain Technique: Right wrist 3 view Comparison: None Findings: Bones: Small fracture fragment is dorsal to the wrist on the lateral image. No other fracture visualized. Alignment is normal. Joint spaces: Unremarkable. Soft tissues: Mild dorsal soft tissue swelling. Impression: Acute fracture of the triquetrum with adjacent soft tissue swelling. Dictated by Eric Henderson MD @ Jan 02 2019 12:14PM Signed by Dr. Eric Henderson @ Jan 02 2019 12:15PM
[2019-01-02 12:45] VITALS: BP 149/81
== END 2019-01-02 12:45 | disposition home or self-care (01) ==
LOC: MW.ED 10:56
DX: S62.111A Displaced fracture of triquetrum [cuneiform] bone, right wrist, initial encounter for closed fracture (principal); I10 Essential (primary) hypertension; Z79.899 Other long term (current) drug therapy; Z79.82 Long term (current) use of aspirin; Z79.84 Long term (current) use of oral hypoglycemic drugs; W19.XXXA Unspecified fall, initial encounter
CPT/HCPCS: 73110-26-LT; 73110-26-RT; 73110-LT; 73110-RT; 99283-25